=== PATIENT | female | born 1970 | race American Indian/Alaskan Native ===

== ENCOUNTER 2020-03-24 19:05 | Emergency (ER) | payer BC ==
[2020-03-24 20:30] LABS: Mean Corpuscular HGB Conc 29 % (30-34); Platelet Count 163 K/mm3 (140-440); Red Blood Count 4.28 M/mm3 (3.65-5.03)
[2020-03-24 20:31] LABS: Alanine Aminotransferase 17 units/L (7-56); Albumin 4.2 g/dL (3.9-5); Blood Urea Nitrogen 14 mg/dL (7-17); Hemolysis Index 2
[2020-03-24 20:41] LABS: Hematocrit 27.3 % (30.3-42.9); Mean Corpuscular Volume 64 fl (79-97); Red Cell Distribution Width 30.5 % (13.2-15.2)
[2020-03-24 20:47] LABS: BUN/Creatinine Ratio 20
[2020-03-24 21:29] LABS: Anisocytosis 3+; Hypochromasia 1+; Total Cells Counted 100
[2020-03-24 21:30] LABS: Crenated RBC Few; Dimorphic RBC Yes; Schistocytes Few
--- NOTE | 2020-03-25 00:20 | Emergency Department Report ---
ED General Adult HPI - General Chief complaint: Dizziness Stated complaint: WEAKNESS PUI?: No Time Seen by Provider: 03/24/20 23:45 Source: patient Mode of arrival: Stretcher Limitations: No Limitations - History of Present Illness Initial comments: Patient is a 49-year-old female that presents emergency room with complaints of vaginal bleeding and dizziness. Patient states she had vaginal bleeding since January 06, 2020. Patient states that today she developed dizziness and weakness. Patient states she was driving and the police pulled her over and the police called the ambulance to bring her to the hospital to be evaluated for dizziness and weakness. Patient states that her vaginal bleeding she saw her primary care but has not seen a SEPARATIONS SCIENTIST. Patient states that her dizziness and weakness are better with rest and worse with exertion and movement. Patient denies chest pain or shortness of breath. Patient denies fever and chills. Patient denies loss of consciousness. Patient denies syncope. Patient denies recent travel. Patient denies recent international travel. Patient denies exposure to the novel coronavirus. Patient denies sick contacts. Patient denies fever and chills. Patient denies cough. Patient denies diarrhea. Patient denies coming in contact with anybody with symptoms of the novel coronavirus. -: Sudden - Related Data Previous Rx's Medication Instructions Recorded Last Taken Type Iron Fum,Ps/Folic/Bcomp,C No.9 1 each PO BID 30 Days #60 capsule 03/25/20 Unknown Rx [Integra Plus Capsule] Allergies Allergy/AdvReac Type Severity Reaction Status Date / Time No Known Allergies Allergy Unverified 03/24/20 19:37 ED Review of Systems ROS: Stated complaint: WEAKNESS Other details as noted in HPI Constitutional: denies: chills, fever Eyes: denies: eye pain, eye discharge, vision change ENT: denies: ear pain, throat pain Respiratory: denies: cough, shortness of breath, wheezing Cardiovascular: denies: chest pain, palpitations Endocrine: no symptoms reported Gastrointestinal: abdominal pain. denies: nausea, vomiting, diarrhea Genitourinary: as per HPI, abnormal menses. denies: urgency, dysuria, discharge Musculoskeletal: denies: back pain, joint swelling, arthralgia Skin: denies: rash, lesions Neurological: as per HPI, weakness. denies: headache, paresthesias Psychiatric: denies: anxiety, depression Hematological/Lymphatic: denies: easy bleeding, easy bruising ED Past Medical Hx - Past Medical History Previous Medical History?: Yes Additional medical history: Uterine Fibroids - Surgical History Past Surgical History?: No - Family History Family history: no significant - Social History Smoking Status: Never Smoker Substance Use Type: None - Medications Home Medications: Home Medications Medication Instructions Recorded Confirmed Last Taken Type Iron Fum,Ps/Folic/Bcomp,C No.9 1 each PO BID 30 Days #60 capsule 03/25/20 Unknown Rx [Integra Plus Capsule] ED Physical Exam - General Limitations: No Limitations General appearance: alert, in no apparent distress - Head Head exam: Present: atraumatic, normocephalic - Eye Eye exam: Present: normal appearance, PERRL Pupils: Present: normal accommodation - ENT ENT exam: Present: mucous membranes moist - Neck Neck exam: Present: normal inspection - Respiratory Respiratory exam: Present: normal lung sounds bilaterally. Absent: respiratory distress, wheezes, rales - Cardiovascular Cardiovascular Exam: Present: regular rate, normal rhythm. Absent: systolic murmur, diastolic murmur, rubs, gallop - GI/Abdominal GI/Abdominal exam: Present: soft, normal bowel sounds. Absent: distended, tenderness, guarding - Rectal Rectal exam: Present: deferred - Extremities Exam Extremities exam: Present: normal inspection - Back Exam Back exam: Present: normal inspection - Neurological Exam Neurological exam: Present: alert, oriented X3, CN II-XII intact, normal gait. Absent: abnormal gait, motor sensory deficit - Psychiatric Psychiatric exam: Present: normal affect, normal mood - Skin Skin exam: Present: warm, dry, intact, normal color. Absent: rash ED Course Vital Signs 03/24/20 19:27 Temperature 98.5 F Pulse Rate 78 Respiratory 18 Rate Blood Pressure 169/97 O2 Sat by Pulse 100 Oximetry - Reevaluation(s) Reevaluation #1: I discussed all results and clinical findings with patient. I discussed plan of care with patient. Patient agrees with plan of care. Patient is stable for discharge. Patient will be discharged home. Patient given discharge instructions. Patient voiced understanding of discharge instructions. 03/25/20 00:24 ED Medical Decision Making - Lab Data Result diagrams: 03/24/20 19:57 03/24/20 19:57 - Medical Decision Making Patient is a 49-year-old female that presents emergency room with complaints of abnormal vaginal bleeding and dizziness and weakness. Patient also complained of abdominal pain. On exam the patient is abdomen is nontender. Patient has been having vaginal bleeding since January 06, 2020. Patient has not seen an TRANSCRIBING OPERATOR HEAD for this dysfunctional uterine bleeding. Patient had labs done which were essentially unremarkable except for anemia. Patient's hemoglobin was 8. Patient does not require further evaluation in the ER. Patient does not require transfusion. Dysfunctional uterine bleeding can be worked up as an outpatient. Patient will be given iron supplements for her anemia. Patient given referral to a SEPARATIONS SCIENTIST. Patient given discharge instructions. Patient stable for discharge. Patient discharged home. - Differential Diagnosis Anemia, dysfunctional uterine bleeding, dizziness, weakness Critical care attestation.: If time is entered above; I have spent that time in minutes in the direct care of this critically ill patient, excluding procedure time. ED Disposition Clinical Impression: Abnormal vaginal bleeding, Dizziness, Weakness, Dysfunctional uterine bleeding Anemia Qualifiers: Anemia type: unspecified type Qualified Code(s): D64.9 - Anemia, unspecified Abdominal pain Qualifiers: Abdominal location: generalized Qualified Code(s): R10.84 - Generalized abdominal pain Disposition: TO HOME OR SELFCARE Is pt being admited?: No Does the pt Need Aspirin: No Condition: Stable Instructions: Fatigue, Weakness, [id number], Abnormal Uterine Bleeding, Ea sy-to-Read, Dysfunctional Uterine Bleeding Additional Instructions: Patient to follow-up with primary care in 2 to 3 days. Patient to follow-up with TRANSCRIBING OPERATOR HEAD in 2 to 3 days. Patient to rest. Patient to increase water. Patient to avoid strenuous exercise or heavy lifting until cleared by TRANSCRIBING OPERATOR HEAD. Patient to take Tylenol as needed for pain. Patient to take meds as directed. Patient to return to the ER if condition worsens, changes or new symptoms arise. Prescriptions: Iron Fum,Ps/Folic/Bcomp,C No.9 [Integra Plus Capsule] 1 each PO BID 30 Days #60 capsule Referrals: PRIMARY CAREMD [Primary Care Provider] - 2-3 Days SINCERE ISRAEL MD [Staff Physician] - 2-3 Days Time of Disposition: 00:22
[2020-03-25 00:57] VITALS: BP 135/78
== END 2020-03-25 00:58 | disposition home or self-care (01) ==
LOC: ED 19:05
DX: N93.8 Other specified abnormal uterine and vaginal bleeding (principal); R42 Dizziness and giddiness; R53.1 Weakness; D64.9 Anemia, unspecified; Z79.899 Other long term (current) drug therapy
CPT/HCPCS: 36415; 80053; 84703; 85007; 85025; 86850; 86900; 86901; 93005; 99283